=== PATIENT | male | born 2005 | race Hispanic/Latino ===

== ENCOUNTER 2024-09-25 15:54 | Emergency (ER) | payer SELFPAY ==
[2024-09-25 15:57] VITALS: BP 135/81
[2024-09-25 16:10] LABS: % Basophils 0.7 % (0-2); % Eosinophils 1.9 % (0-6); % Immature Granulocytes 0.2 % (0-0.5); % Lymphocytes 22.6 % (20.5-51.1); % Monocytes 5.1 % (1.7-9.3); % Neutrophils 69.5 % (42.2-75.2); Absolute Basophils 0.1 10^3/uL (0-0.2); Absolute Eosinophils 0.2 10^3/uL (0-0.7); Absolute Lymphocytes 2.2 10^3/uL (1.2-3.4); Absolute Monocytes 0.5 10^3/uL (0.1-0.6); Absolute Neutrophils 6.6 10^3/uL (1.4-6.5); Hematocrit 44.3 % (39.0-52.0); Hemoglobin 15.2 g/dL (13.0-18.0); Mean Corp Hgb Conc. 34.3 g/dL (33.0-37.0); Mean Corpuscular Hgb 27.9 pg (27.0-31.0); Mean Corpuscular Volume 81.3 fL (80.0-94.0); Mean Platelet Volume 9.8 fL (7.4-10.4); Nucleated Red Blood Cells % 0 % (-); Platelet Count 263 10^3/uL (130-400); Red Blood Cell Count 5.45 10^6/uL (4.70-6.10); Red Cell Dist. Width 11.5 % (11.5-14.5); White Blood Cell Count 9.5 10^3/uL (4.8-10.8)
[2024-09-25 16:24] LABS: ALT (SGPT) 12 U/L (0-50); AST (SGOT) 21 U/L (17-59); Albumin 4.6 g/dl (3.5-5.0); Alkaline Phosphatase 74 U/L (38-126); Blood Urea Nitrogen 18 mg/dl (9-20); Calcium 9.8 mg/dl (8.4-10.2); Carbon Dioxide 28 mmol/L (22-30); Chloride 107 mmol/L (98-107); Glucose 100 mg/dl (70-99); Potassium 3.8 mmol/L (3.5-5.1); Sodium 142 mmol/L (135-145); Total Bilirubin 0.7 mg/dl (0.2-1.3); Total Protein 7.1 g/dl (6.3-8.2); eGFR > 60.00
[2024-09-25 16:39] LABS: Troponin I 0.017 ng/ml
--- NOTE | 2024-09-25 19:41 | ED.GENMED ---
History of Present Illness
General
Chief Complaint: Chest Pain
Source: patient
Time Seen by Provider: 09/25/24 19:26
History of Present Illness
History of Present Illness:
18-year-old male with no known past medical history presenting to the emergency department for evaluation after he developed left-sided chest pain/discomfort while playing basketball earlier this afternoon, symptoms lasted about 20 to 30 minutes and
resolved after he was finished playing. Patient states that this was not an unusual activity/sport for him to play although he does note over the winter months he had not been playing basketball as much. There were no other associated symptoms at
the time and patient is denying any symptoms currently. Patient denies feeling lightheaded or as if he were going to pass out and he denies any recent fevers, illnesses, cough, pleurisy, lower extremity edema or any other concerns. No recent
travel. Family history was unremarkable and specifically patient and father declined any known history of sudden cardiac or cardiac arrhythmia. Social history also noncontributory.
Past History
Past History
ED Past Medical History: None
ED Past Surgical History: None
Social History
Tobacco: Non-smoker
Alcohol: None
Drug: None
Personal: Single
Living: with family
Review of Systems
Review of Systems
All Other Systems: ROS reviewed and negative except as documented in HPI and ROS
Phy Exam
Physical Exam
Physical Exam:
GENERAL: Alert , in no apparent distress
EYE: conjunctiva clear
NECK: Supple
ENT: o/p clr, mmm.
CARDIAC: Regular rate and rhythm, no murmur
LUNGS: Clear breath sounds bilaterally, no acute respiratory distress, no wheezes/rales/rhonchi
NEUROLOGICAL: Alert and oriented
SKIN: Warm and dry, skin intact.
MUSCULOSKELETAL: well perfused.
PSYCH: Normal and appropriate interaction.
Scores
Heart Failure Risk
Heart Failure Risk Score: Not Applicable
Heart Score for Chest Pain Patients
STEMI patient?: No
History: Moderately Suspicious
ECG: Normal
Age: </= 45 years
Risk Factors: No Risk Factors
Troponin: </= Normal Limit
Heart Score for Chest Pain Patients: 1
Heart Score Risk: 2.5% MACE over next 6 weeks
Withdrawal Assessment of Alcohol
Withdrawal Assessment Completed?: Not applicable
Course
Orders/Labs/Results
Orders:
Orders
09/25/24 15:59
Electrocardiogram (*1) Urgent
Reason for Study: Chest Pain
EKG- Treatment ONCE
09/25/24 16:02
Complete Blood Count/With Diff Urgent
Comprehensive Metabolic Panel Urgent
Troponin I Urgent
09/25/24 19:27
CR Chest - 2 Views Urgent
Comment:
Reason For Exam: chest pain
09/25/24 19:45
Troponin I Urgent
Abnormal Lab Results
09/25/24
16:02
Absolute Neuts (auto) 6.6 H 10^3/uL
(1.4-6.5)
Glucose 100 H mg/dl
(70-99)
09/25/24 16:02
09/25/24 16:02
Vital Signs
Initial and Last Documented VS:
Initial Vital Signs
Temp Pulse Resp BP Pulse Ox
98.5 F 92 16 135/81 98
09/25/24 15:57 09/25/24 15:57 09/25/24 15:57 09/25/24 15:57 09/25/24 15:57
Last Documented Vital Signs
Temp Pulse Resp BP Pulse Ox
98.5 F 92 18 131/65 100
09/25/24 15:57 09/25/24 19:46 09/25/24 19:46 09/25/24 19:46 09/25/24 19:46
MDM/Problems Addressed
Differential Diagnosis Includes:
Cardiomyopathy, cardiac arrhythmia, given age and lack of medical history less concern for ACS, valvular dysfunction, musculoskeletal chest wall pain
MDM/Problems Addressed:
18-year-old male presenting to the emergency department for evaluation of left-sided chest discomfort which lasted about 30 minutes while playing basketball earlier this afternoon. Patient states he has never experienced similar in the past.
Presently chest pain-free. Workup was initiated on arrival with labs and EKG being performed. EKG was a sinus tachycardia at 100 bpm but no ischemic changes. Troponin is within normal limits however nonnegative, will repeat a 3-hour troponin.
Chest x-ray ordered. Patient currently does not have primary care provider or medical insurance. Given his age and presenting symptoms I do have some concern for cardiomyopathy as a potential cause for symptoms. I discussed with the patient that
I do feel him obtaining an outpatient echocardiogram is something that would be beneficial and rule out any significant abnormalities. Will provide with information for the [facility] to have the patient follow-up. I also encouraged the
patient to avoid any significant physical activity until he has this test performed so as to avoid any potential serious illness.
*Radiology
Radiology exam reviewed: preliminary read by ED provider (Normal chest x-ray)
*Pulse Oximetry
Patient hypoxic: no
*EKG
Interpreted by ED Provider?: Yes
Heart Rate: 100
Rate: tachycardiac
Rhythm: sinus
[place]: normal axis
Ischemia: no ischemia
*Post Splitter Interpretation
Rate: normal
Rhythm: sinus
*Critical Care Note
Total Time (30-74mins, 75-104mins- exclusive of procedures): Not Applicable
Patient Management
Discussion with other providers: Armature Bander
Escalation/DeEscalation of care consider admission/obs:
I did discuss the case with cardiology who agrees with treatment plan
Repeat troponin negative. Chest x-ray unremarkable for any acute pathologies. Patient stable for discharge home and aware of return precautions.
ED Attending Note
-
Portions of this chart may have been created with voice recognition software.� Occasional wrong word or��sound alike� substitutions may have occurred due to the inherent limitations of voice recognition software.
Discharge Plan
Departure
Patient Disposition: Home (Routine Discharge)
Date of Disposition: 09/25/24
Time of Disposition: 20:23
Patient with high blood pressure during this ER visit?: No
Discharge Problem:
Chest pain
Instructions: Chest Pain PCP Follow Up
Prescriptions:
No Action
No Current Medications
0
Referrals:
[facility] [Outside] (Call for appointment [facility])
NONE,* [Family Provider] -
Interventions
Interventions:
*Risk Screen - Suicide Last Done: 09/25/24 19:48
*Neglect/Abuse Screening Last Done: 09/25/24 19:48
*Nursing Disposition Last Done: 09/25/24 20:33
ED- Cardiac Assessment Last Done: 09/25/24 19:48
Discharge Date and Time
Discharge Date/Time: 09/25/24 20:33
Print Language: YAKUT
[2024-09-25 19:46] VITALS: BP 131/65
[2024-09-25 20:22] LABS: Troponin I 0.016 ng/ml
== END 2024-09-25 20:33 | disposition home or self-care (01) ==
LOC: EMR 15:54
PROVIDERS: Emergency Medicine; Physician Assistant Medical; EMERGENCY PHYSICIAN Emergency Medicine
DX: R07.89 Other chest pain (principal)
CPT/HCPCS: 99283; 71046; 80053; 84484; 85025; 93005